=== PATIENT | female | born 1980 | race Caucasian/White ===

== ENCOUNTER 2019-11-28 22:14 | Emergency (ER) | payer SELFPAY ==
[2019-11-28 22:21] VITALS: BP 119/76; PULSE 88; TEMP 97.9; BMI 32.5
[2019-11-28] MEDS ORDERED: ACETAMINOPHEN 1000 MG/100 ML VIAL (NON FORMULARY) IVPB ONE (22:58)
[2019-11-28] MEDS ORDERED: SODIUM CHLORIDE 0.9% 500 ML INFUS.BAG IV ONE (22:58)
[2019-11-28] MEDS ORDERED: ACETAMINOPHEN INJECTION 100 ML IVPB ONE (23:08)
--- NOTE | 2019-11-28 23:21 | PDOC ---
History of Present Illness - General Chief Complaint: Pain, Acute Stated Complaint: PAIN TO LT FLANK Time Seen by Provider: 11/28/19 22:31 - History of Present Illness Initial Comments: 39F w/o PMH presenting with sudden onset on/off sharp and severe LLQ pain w/ radiation to the left flank, started approx 30 mins before presentation. Pt endorses vomiting after taking ibuprofen for the pain. Denies current nausea. Denies f/c, cp/sob, dysuria, hematuria, vaginal bleeding or discharge. LMP 1 week ago. No prior abd surg, no recent abx, no sick contacts. NKDA PCP - Dr. Fine Denies etoh Past History - Past Medical History Allergies/Adverse Reactions: Allergies Allergy/AdvReac Type Severity Reaction Status Date / Time No Known Allergies Allergy Verified 11/28/19 22:21 Home Medications: Ambulatory Orders Ondansetron [Zofran *Odt*] 4 mg SL TID PRN #21 od.tablet 11/29/19 Tamsulosin HCl [Flomax] 0.4 mg PO HS #10 capsule 11/29/19 traMADol HCL [Ultram] 50 mg PO Q8H PRN #15 tablet MDD 3 11/29/19 COPD: No - Psycho Social/Smoking Cessation Hx Smoking History: Never smoked Have you smoked in the past 12 months: No Hx Alcohol Use: No Drug/Substance Use Hx: No Substance Use Type: None Review of Systems - Review of Systems Comments:: CONSTITUTIONAL: Denies F / C HEENT: Denies sore throat, rhinorrhea RESP: Denies SOB CARD: Denies chest pain GI: Endorse LLQ/Left flank pain. Endorsed past N/V. Denies constipation, diarrhea : Denies dysuria, hematuria SKIN: Denies rashes NEURO: Denies numbness, tingling, weakness MSK: Denies back pain *Physical Exam - Vital Signs Last Vital Signs Temp Pulse Resp BP Pulse Ox 97.9 F 88 18 119/76 98 11/28/19 22:19 11/28/19 22:19 11/28/19 22:19 11/28/19 22:19 11/28/19 22:19 - Physical Exam VS: afebrile GEN: Well appearing, NAD, AAOx3. HEENT: NC/AT. No facial asymmetry. Normal voice. Supple neck w/ FROM. CV: S1/S2, RRR, no m/r/g LUNG: CTAB, no wheezes, crackles, rales, rhonchi. GI: Mild/minimal TTP LLQ and Left flank. Soft, nondistended, +BS, no guarding, no rebound. No masses. Neg CVAT b/l. EXTREMITIES: No obvious deformities of all extremities. SKIN: Warm, dry, no rashes appreciated. PSYCH: Normal mood and affect. NEURO: Moving all extremities well. Ambulates w/ normal gait. ED Treatment Course - LABORATORY CBC & Chemistry Diagram: 11/28/19 23:20 11/28/19 23:20 Medical Decision Making - Medical Decision Making 11/28/19 23:15 39F p/w LLQ pain radiating to left flank. Minimally tender exam, no CVAT. DDx - likely renal stone; consider diverticulitis, colitis, gastroenteritis, ovarian torsion, abscess, - CBC, CMP, Lipase, - UA - Spiral CT - Fluids - Pain ctrl 11/29/19 00:42 pt states pain is gone s/p tylenol 11/29/19 01:08 d/w lab - urine to be processed, they have the order for UA and UC f/u 11/29/19 01:37 UA neg for infection; + blood CT IOC READ: FINDINGS: Lung bases are clear. The visualized cardiac chambers are normal size and configuration. Cholesterol gallstones are noted without gallbladder inflammation or biliary duct dilation. There is minimal left hydronephrosis secondary to a 3 mm proximal to mid left renal stone. Additional tiny bilateral renal stones are noted. Normal unenhanced liver, pancreas, spleen, adrenal glands . The stomach and abdominal small and large bowel are normal. There is no aortic aneurysm. There is no significant retroperitoneal lymphadenopathy. The pelvic small and large bowel are normal. There is an appendicolith, but no evidence of appendicitis. The uterus and adnexal structures are normal. Urinary bladder is unremarkable. There is no pelvic free fluid. No discrete pelvic lymphadenopathy is identified. IMPRESSION: Minimal left hydronephrosis secondary to a 3 mm proximal to mid left renal stone. Additional tiny bilateral renal stones. Gallstones. THIS DOCUMENT HAS BEEN ELECTRONICALLY SIGNED Oscar Luna MD discussed results and further management with patient DC home w/ PCP f/u; return precautions; strainer, Rx Discharge - Discharge Information Problems reviewed: Yes Clinical Impression/Diagnosis: Renal stone Condition: Stable Disposition: HOME - Admission No - Additional Discharge Information Prescriptions: Ondansetron [Zofran *Odt*] 4 mg SL TID PRN #21 od.tablet PRN Reason: Nausea Tamsulosin HCl [Flomax] 0.4 mg PO HS #10 capsule traMADol HCL [Ultram] 50 mg PO Q8H PRN #15 tablet MDD 3 PRN Reason: Severe Pain - Follow up/Referral Referrals: Desean Bello MD [Staff Physician] - Victoriano Fine MD [Primary Care Provider] - Jovanni Kaplan MD [Staff Physician] - - Patient Discharge Instructions Patient Printed Discharge Instructions: DI for Kidney Stones Additional Instructions: You were found to have a kidney stone on the left side, this is likely the explanation of your pain. A stone of your size should pass spontaneously. A copy of your CT scan was provided to you. Take ibuprofen as directed on the label for pain. Drink plenty of fluids. Strain your urine. We are sending medications to [facility]. Please pick them up and take as prescribed. One is for severe pain. The second is for nausea. The third is to help pass the stone. Follow up with your primary care doctor in the next 5-7 days. Immediately return to the Emergency Department if you experience: - fever - inability to eat or drink - worsening or change in pain - anything that concerns you - Post Discharge Activity Work/Back to School Note: Back to Work
[2019-11-28 23:29] LABS: BASO % 0.4 % (0-2.0); EOS % 0.8 % (0-4.5); HEMATOCRIT 34.2 % (32.4-45.2); HEMOGLOBIN 11.1 GM/dL (10.7-15.3); LYMPH % 10.4 % (8-40); MCH 25.5 pg (25.7-33.7); MCHC 32.4 g/dl (32.0-36.0); MEAN CELL VOLUME 78.7 fl (80-96); MEAN PLT VOLUME 8.9 fl (7.5-11.1); MONO % 6.3 % (3.8-10.2); NEUT % 82.1 % (42.8-82.8); PLATELET COUNT 256 K/MM3 (134-434); RBC 4.35 M/mm3 (3.60-5.2); RDW 16.2 % (11.6-15.6); WHITE BLOOD COUNT 9.6 K/mm3 (4.0-10.0)
[2019-11-28 23:57] LABS: ALBUMIN 3.5 g/dl (3.4-5.0); BILIRUBIN,TOTAL 0.7 mg/dL (0.2-1); CALCIUM 8.5 mg/dL (8.5-10.1); CREATININE 0.8 mg/dL (0.55-1.3); POTASSIUM 3.7 mmol/L (3.5-5.1); TOT PROT 7.1 g/dl (6.4-8.2)
[2019-11-29 01:22] LABS: EPI CELLS 7.5 /HPF (0-5/HPF); HYALINE CASTS 4 /lpf (0-8); PH,URINE 5.5 (5.0-8.0); URINE APPEARANCE CLOUDY; URINE BACTERIA 176.7 /hpf (NEGATIVE); URINE BILIRUBIN NEGATIVE (NEGATIVE); URINE COLOR YELLOW; URINE GLUCOSE (UA) NEGATIVE (NEGATIVE); URINE KETONE 1+ (NEGATIVE); URINE LEUK ESTERASE NEGATIVE (NEGATIVE); URINE NITRITE NEGATIVE (NEGATIVE); URINE PROTEIN TRACE (NEGATIVE); URINE RBC 189 /hpf (0-4); URINE UROBILINOGEN 0.2 mg/dL (0.2-1.0)
[2019-11-29 01:28] LABS: URINE WBC 16.4 /hpf (0-5)
--- NOTE | 2019-11-29 01:35 | PDOC ---
Documentation entered by Joe Leyva SCRIBE, acting as scribe for Ml Xavier MD. Ml Xavier MD: This documentation has been prepared by the Autumn mancini Xhesika, SCRIBE, under my direction and personally reviewed by me in its entirety. I confirm that the documentation accurately reflects all work, treatment, procedures, and medical decision making performed by me. 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 Patient describes the pain as sharp, intermittent, radiating to her back. Pt reports endorsing nausea and nbnb vomiting while taking ibuprofen, which has since resolved. She reports her LMP was 1 week ago. The patient denies chest pain, shortness of breath, headache and dizziness. Denies fever, chills, cough, nausea, vomiting, diarrhea and constipation. Denies dysuria, frequency, urgency and hematuria. Allergies: NKDA PCP: Victoriano Alvarado 11/28/19 23:37 - Physicial Exam PE: 11/28/19 23:09 GENERAL: The patient is in no acute distress. HEAD: Normal EYES: PERRLA, EOMI, sclera anicteric, conjunctiva clear. ENT: Ears normal, nares patent, oropharynx clear without exudates. Moist mucous membranes. NECK: Normal range of motion, supple without lymphadenopathy LUNGS: Breath sounds equal, clear to auscultation bilaterally. No wheezes, and no crackles. HEART:Regular rate and rhythm, normal S1 and S2 without murmur, rub or gallop. ABDOMEN: Soft, left side tenderness, Left CVA tenderness EXTREMITIES: Normal range of motion, no edema. NEUROLOGICAL: Cranial nerves II through XII grossly intact. Normal speech. No focal neurological deficits. MUSCULOSKELETAL: Back non-tender to palpation, no CVA tenderness SKIN: No rashes noted 12/01/19 09:19 - Medical Decision Making 01/19/20 01:30 Laboratory Tests 11/28/19 11/28/19 11/28/19 23:20 23:20 23:20 WBC 9.6 Hgb 11.1 Hct 34.2 Plt Count 256 BUN 12.0 Creatinine 0.8 Serum , Qual Negative Urine Blood Urine WBC (Auto) Urine RBC (Auto) Urine Bacteria (Auto) 11/29/19 00:34 WBC Hgb Hct Plt Count BUN Creatinine Serum , Qual Urine Blood 3+ H Urine WBC (Auto) 16.4 Urine RBC (Auto) 189 Urine Bacteria (Auto) 176.[address]: 3mm stone noted mid ureter, hydronephrosis Pt pain has resolved Will plan to discharge with follow up with Urology/PMD Strain urine Return to the ER for fevers, chills, intractable pain, any other concerns or complaints Clinical impression: kidney stone, initial presentation Discharge - Discharge Information Problems reviewed: Yes Clinical Impression/Diagnosis: Renal stone Condition: Stable Disposition: HOME - Admission No - Additional Discharge Information Prescriptions: Ondansetron [Zofran *Odt*] 4 mg SL TID PRN #21 od.tablet PRN Reason: Nausea Tamsulosin HCl [Flomax] 0.4 mg PO HS #10 capsule traMADol HCL [Ultram] 50 mg PO Q8H PRN #15 tablet MDD 3 PRN Reason: Severe Pain - Follow up/Referral Referrals: Victoriano Fine MD [Primary Care Provider] - Desean Bello MD [Staff Physician] - Jovanni Kaplan MD [Staff Physician] - - Patient Discharge Instructions Patient Printed Discharge Instructions: DI for Kidney Stones Additional Instructions: You were found to have a kidney stone on the left side, this is likely the explanation of your pain. A stone of your size should pass spontaneously. A copy of your CT scan was provided to you. Take ibuprofen as directed on the label for pain. Drink plenty of fluids. Strain your urine. We are sending medications to [facility]. Please pick them up and take as prescribed. One is for severe pain. The second is for nausea. The third is to help pass the stone. Follow up with your primary care doctor in the next 5-7 days. Immediately return to the Emergency Department if you experience: - fever - inability to eat or drink - worsening or change in pain - anything that concerns you - Post Discharge Activity Work/Back to School Note: Back to Work
== END 2019-11-29 01:39 | disposition home or self-care (01) ==
LOC: JER 22:14
PROC: 3E033NZ Introduction of Analgesics, Hypnotics, Sedatives into Peripheral Vein, Percutaneous Approach (ICD-10-PCS; principal; 2019-11-28)
DX: N13.2 Hydronephrosis with renal and ureteral calculous obstruction (principal)
CPT/HCPCS: 36415; 74176-TC; 80053; 81003; 83690; 84703; 85025; 99282-25; J0131

== ENCOUNTER 2021-09-12 12:36 | Emergency (ER) | payer OTHER ==
[2021-09-12 12:44] VITALS: BP 122/80; PULSE 64; TEMP 98.8; BMI 33.3
[2021-09-12] MEDS ORDERED: KETOROLAC TROMETHAMINE 30 MG/1 ML VIAL IM ONE (13:14)
[2021-09-12] MEDS ORDERED: LIDOCAINE 5% TOPICAL PATCH TP ONE (13:14)
[2021-09-12] MEDS ORDERED: LIDOCAINE 5% TOPICAL PATCH ONE (13:15)
[2021-09-12] MEDS ORDERED: KETOROLAC TROMETHAMINE 30 MG/1 ML VIAL ONE (13:15)
[2021-09-12] MEDS ORDERED: LIDOCAINE PATCH REMOVAL MC SCH (22:00)
== END 2021-09-12 14:11 | disposition home or self-care (01) ==
LOC: JERFT 12:36
PROC: 3E0233Z Introduction of Anti-inflammatory into Muscle, Percutaneous Approach (ICD-10-PCS; principal; 2021-09-12)
DX: M54.50 Low back pain, unspecified (principal); X50.0XXA Overexertion from strenuous movement or load, initial encounter
CPT/HCPCS: 99284-25

== ENCOUNTER 2022-01-28 05:32 | Inpatient (IN) | payer OTHER ==
[2022-01-28 05:48] VITALS: BMI 34.9
[2022-01-28] MEDS ORDERED: ONDANSETRON 4 MG TABLET PO ONE (06:01)
[2022-01-28] MEDS ORDERED: SODIUM CHLORIDE 0.9% 500 ML INFUS.BAG IV ONE ×2 (06:06→08:56)
[2022-01-28] MEDS ORDERED: ONDANSETRON 4 MG/2 ML VIAL IVPUSH ONE (06:21)
[2022-01-28] MEDS ORDERED: ONDANSETRON 4 MG/2 ML VIAL ONE (06:34)
[2022-01-28 06:48] LABS: BASO % 0.5 % (0-2.0); EOS % 3.1 % (0-4.5); HEMATOCRIT 40.2 % (32.4-45.2); HEMOGLOBIN 13.2 GM/dL (10.7-15.3); LYMPH % 19.7 % (8-40); MCH 26.6 pg (25.7-33.7); MCHC 32.7 g/dl (32.0-36.0); MEAN CELL VOLUME 81.3 fl (80-96); MEAN PLT VOLUME 8.3 fl (7.5-11.1); MONO % 5.6 % (3.8-10.2); NEUT % 71.1 % (42.8-82.8); PLATELET COUNT 302 10^3/uL (134-434); RBC 4.95 M/mm3 (3.60-5.2); RDW 16.7 % (11.6-15.6); WHITE BLOOD COUNT 8.3 K/mm3 (4.0-10.0)
[2022-01-28 07:12] LABS: BLOOD UREA NITROGEN 10.7 mg/dL (7-18); CALCIUM 8.9 mg/dL (8.5-10.1)
[2022-01-28 07:14] LABS: ALBUMIN 3.6 g/dl (3.4-5.0)
[2022-01-28 07:17] LABS: BILIRUBIN,TOTAL 0.6 mg/dL (0.2-1); CREATININE 0.8 mg/dL (0.55-1.3); TOT PROT 8.1 g/dl (6.4-8.2)
[2022-01-28 07:45] LABS: EPI CELLS >36 /uL (0-25.1); HYALINE CASTS 3 /uL (0-3.1); URINE APPEARANCE CLOUDY; URINE BACTERIA 5162 /uL (0-1359); URINE BILIRUBIN NEGATIVE (NEGATIVE); URINE COLOR YELLOW; URINE GLUCOSE (UA) NEGATIVE (NEGATIVE); URINE KETONE NEGATIVE (NEGATIVE); URINE LEUK ESTERASE 2+ (NEGATIVE); URINE NITRITE NEGATIVE (NEGATIVE); URINE PROTEIN NEGATIVE (NEGATIVE); URINE RBC 217 /uL (0-23.9); URINE UROBILINOGEN 0.2 mg/dL (0.2-1.0); URINE WBC 293 /uL (0-25.8)
[2022-01-28] MEDS ORDERED: KETOROLAC TROMETHAMINE 30 MG/1 ML VIAL ONE (07:48)
[2022-01-28] MEDS ORDERED: KETOROLAC TROMETHAMINE 30 MG/1 ML VIAL IVPUSH ONE (07:48)
[2022-01-28] MEDS ORDERED: CEFTRIAXONE 2 GM-D5W BAG 2 GM/50 ML BAG IVPB ONE (08:16)
[2022-01-28] MEDS ORDERED: CEFTRIAXONE 2 GM/100 ML BAG IVPB ONE (08:40)
[2022-01-28] MEDS ORDERED: morphine CARPU-JECT 4 MG/1 ML DISP.SYRIN IVPUSH ONE (08:47)
[2022-01-28] MEDS ORDERED: morphine SULFATE 4 MG/ML VIAL ONE (08:51)
[2022-01-28] MEDS ORDERED: ACETAMINOPHEN 1000 MG/100 ML BAG IVPB ONE (08:55)
[2022-01-28] MEDS ORDERED: ACETAMINOPHEN INJECTION 100 ML IVPB ONE (08:56)
[2022-01-28] MEDS ORDERED: ONDANSETRON 4 MG/2 ML VIAL IVPUSH PRN (10:26)
[2022-01-28] MEDS ORDERED: morphine SULFATE 4 MG/ML VIAL IVPUSH PRN (11:15)
[2022-01-28] MEDS ORDERED: ACETAMINOPHEN 1000 MG/100 ML BAG IVPB PRN (11:15)
[2022-01-28] MEDS: SODIUM CHLORIDE 1,000 ML IV SCH ×2 (12:08→20:40)
[2022-01-29] MEDS: SODIUM CHLORIDE 1,000 ML IV SCH ×2 (05:48→16:30)
[2022-01-29] MEDS ORDERED: cefTRIAXone SODIUM 1 GM VIAL ONE (08:39)
[2022-01-29] MEDS ORDERED: DEXTROSE 5%-WATER - 50 ML IVPB ONE ×2 (08:39→22:08)
[2022-01-29] MEDS: CEFTRIAXONE 1 GM in DEXTROSE 5%-WATER - 50 ML IVPB SCH ×2 (08:56→09:14)
[2022-01-29 10:37] LABS: BASO % 0.5 % (0-2.0); EOS % 3.4 % (0-4.5); HEMATOCRIT 35.2 % (32.4-45.2); HEMOGLOBIN 11.6 GM/dL (10.7-15.3); LYMPH % 21.7 % (8-40); MCH 26.7 pg (25.7-33.7); MCHC 33.1 g/dl (32.0-36.0); MEAN CELL VOLUME 80.6 fl (80-96); MEAN PLT VOLUME 8.2 fl (7.5-11.1); MONO % 5.2 % (3.8-10.2); NEUT % 69.2 % (42.8-82.8); PLATELET COUNT 236 10^3/uL (134-434); RBC 4.37 M/mm3 (3.60-5.2); RDW 16.9 % (11.6-15.6); WHITE BLOOD COUNT 5.5 K/mm3 (4.0-10.0)
[2022-01-29 10:57] LABS: CALCIUM 7.9 mg/dL (8.5-10.1)
[2022-01-29 10:58] LABS: ALBUMIN 2.9 g/dl (3.4-5.0); BLOOD UREA NITROGEN 7.4 mg/dL (7-18)
[2022-01-29 11:01] LABS: CREATININE 0.6 mg/dL (0.55-1.3)
[2022-01-29 11:02] LABS: BILIRUBIN,TOTAL 0.6 mg/dL (0.2-1)
[2022-01-29 11:03] LABS: TOT PROT 6.6 g/dl (6.4-8.2)
[2022-01-29] MEDS ORDERED: oxyCODONE HCL 5 MG TABLET PO PRN ×2 (14:13→15:29)
[2022-01-29] MEDS ORDERED: LACTATED RINGERS SOLUTION 1,000 ML IV SCH ×2 (14:15→15:29)
[2022-01-29] MEDS ORDERED: PROPOFOL 20 ML ONE (14:22)
[2022-01-29] MEDS ORDERED: DEXAMETHASONE SOD PHOSPHATE 4 MG/1 ML VIAL ONE (14:30)
[2022-01-29] MEDS ORDERED: ceFAZolin SODIUM 1 GM VIAL ONE ×2 (14:33→22:08)
[2022-01-29] MEDS ORDERED: ceFAZolin SODIUM 1 GM VIAL IVPB ONE (14:34)
[2022-01-29] MEDS ORDERED: KETOROLAC TROMETHAMINE 30 MG/1 ML VIAL ONE (14:43)
[2022-01-29] MEDS ORDERED: morphine SULFATE 4 MG/ML VIAL IVPUSH PRN (15:29)
[2022-01-29] MEDS ORDERED: ONDANSETRON 4 MG/2 ML VIAL IVPUSH PRN (15:29)
[2022-01-29] MEDS: CEFAZOLIN 1 GM in DEXTROSE 5%-WATER - 50 ML IVPB SCH (22:10)
[2022-01-30] MEDS: SODIUM CHLORIDE 1,000 ML IV SCH ×2 (01:14→13:03)
[2022-01-30] MEDS ORDERED: ceFAZolin SODIUM 1 GM VIAL ONE (05:56)
[2022-01-30] MEDS ORDERED: DEXTROSE 5%-WATER - 50 ML IVPB ONE ×2 (05:56→14:33)
[2022-01-30] MEDS: CEFAZOLIN 1 GM in DEXTROSE 5%-WATER - 50 ML IVPB SCH (06:37)
[2022-01-30 10:09] LABS: HEMATOCRIT 36.1 % (32.4-45.2); HEMOGLOBIN 11.6 GM/dL (10.7-15.3); MCH 26.3 pg (25.7-33.7); MCHC 32.2 g/dl (32.0-36.0); MEAN CELL VOLUME 81.8 fl (80-96); MEAN PLT VOLUME 8.7 fl (7.5-11.1); PLATELET COUNT 272 10^3/uL (134-434); RBC 4.42 M/mm3 (3.60-5.2); RDW 16.7 % (11.6-15.6); WHITE BLOOD COUNT 12.8 K/mm3 (4.0-10.0)
[2022-01-30 10:34] LABS: ALBUMIN 3.2 g/dl (3.4-5.0); CALCIUM 8.4 mg/dL (8.5-10.1)
[2022-01-30 10:37] LABS: CREATININE 0.8 mg/dL (0.55-1.3)
[2022-01-30 10:38] LABS: BILIRUBIN,TOTAL 0.4 mg/dL (0.2-1); TOT PROT 6.8 g/dl (6.4-8.2)
[2022-01-30 11:26] LABS: ANISOCYTOSIS 0; MACROCYTOSIS 0
[2022-01-30] MEDS ORDERED: cefTRIAXone SODIUM 1 GM VIAL ONE (14:33)
[2022-01-30] MEDS: CEFTRIAXONE 1 GM in DEXTROSE 5%-WATER - 50 ML IVPB SCH (15:04)
[2022-01-30] MEDS: ENOXAPARIN NA (PORCINE) 40 MG/0.4 ML DISP.SYRIN SQ SCH (15:05)
[2022-01-30] MEDS ORDERED: oxyCODONE HCL 5 MG TABLET PO PRN (16:19)
[2022-01-30] MEDS ORDERED: SENNOSIDES/DOCUSATE COMBO (SENNA PLUS) TABLET (UD) PO PRN (20:03)
[2022-01-30] MEDS: POLYETHYLENE GLYCOL (HEALTHYLAX) 3350 17 GM PACKET PO SCH (21:57)
[2022-01-31 00:20] LABS: EPI CELLS 24 /uL (0-25.1); HYALINE CASTS 0 /uL (0-3.1); URINE APPEARANCE CLEAR; URINE BACTERIA 116 /uL (0-1359); URINE BILIRUBIN NEGATIVE (NEGATIVE); URINE COLOR YELLOW; URINE GLUCOSE (UA) NEGATIVE (NEGATIVE); URINE KETONE TRACE (NEGATIVE); URINE LEUK ESTERASE TRACE (NEGATIVE); URINE NITRITE NEGATIVE (NEGATIVE); URINE PROTEIN 2+ (NEGATIVE); URINE RBC 2599 /uL (0-23.9); URINE UROBILINOGEN 0.2 mg/dL (0.2-1.0); URINE WBC 41 /uL (0-25.8)
[2022-01-31 07:31] VITALS: TEMP 98.1
[2022-01-31] MEDS ORDERED: DEXTROSE 5%-WATER - 50 ML IVPB ONE (09:22)
[2022-01-31] MEDS ORDERED: cefTRIAXone SODIUM 1 GM VIAL ONE (09:22)
[2022-01-31 09:25] LABS: BASO % 0.4 % (0-2.0); EOS % 1.1 % (0-4.5); HEMOGLOBIN 11.2 GM/dL (10.7-15.3); LYMPH % 26.3 % (8-40); MCH 26.7 pg (25.7-33.7); MEAN PLT VOLUME 8.3 fl (7.5-11.1); MONO % 5.2 % (3.8-10.2); PLATELET COUNT 245 10^3/uL (134-434); RBC 4.21 M/mm3 (3.60-5.2); RDW 16.8 % (11.6-15.6); WHITE BLOOD COUNT 8.3 K/mm3 (4.0-10.0)
[2022-01-31] MEDS: ENOXAPARIN NA (PORCINE) 40 MG/0.4 ML DISP.SYRIN SQ SCH (09:41)
[2022-01-31] MEDS: CEFTRIAXONE 1 GM in DEXTROSE 5%-WATER - 50 ML IVPB SCH (09:41)
[2022-01-31 09:42] LABS: CALCIUM 8.1 mg/dL (8.5-10.1)
[2022-01-31] MEDS: POLYETHYLENE GLYCOL (HEALTHYLAX) 3350 17 GM PACKET PO SCH (09:42)
[2022-01-31 09:46] LABS: CREATININE 0.7 mg/dL (0.55-1.3)
[2022-01-31 09:47] LABS: TOT PROT 6.4 g/dl (6.4-8.2)
[2022-01-31 11:43] VITALS: BP 133/86; PULSE 72
== END 2022-01-31 13:00 | disposition home or self-care (01) | DRG 446 ==
LOC: JER 05:32 → JERBED 10:27 → J5S 13:03
PROVIDERS: ADMIT Internal Medicine; ATTEND Internal Medicine
PROC: 0TC78ZZ Extirpation of Matter from Left Ureter, Via Natural or Artificial Opening Endoscopic (ICD-10-PCS; principal; 2022-01-30)
PROC: 0T778DZ Dilation of Left Ureter with Intraluminal Device, Via Natural or Artificial Opening Endoscopic (ICD-10-PCS; 2022-01-30)
DX: N13.6 Pyonephrosis (principal); N20.1 Calculus of ureter; K80.20 Calculus of gallbladder without cholecystitis without obstruction; K57.90 Diverticulosis of intestine, part unspecified, without perforation or abscess without bleeding; N39.0 Urinary tract infection, site not specified
CPT/HCPCS: 36415; 74018-TC-FY; 74176-TC; 76000-TC-FY; 80053; 81003; 82360; 84703; 85025; 87086; 88300-TC; 94760; 99285-25; C9803-CS; U0003; U0005